=== PATIENT | male | born 1955 | race Caucasian/White ===

== ENCOUNTER → 2024-01-16 11:24 | Outpatient (REF) | payer MEDICARE, SELFPAY | LOC: HWRAD 11:24 | PROVIDERS: ATTENDING PHYSICIAN Family Medicine | DX: M25.562 Pain in left knee (principal) | CPT/HCPCS: 73564; 73565 ==

== ENCOUNTER → 2024-01-20 | Outpatient (REF) | payer MEDICARE, SELFPAY | LOC: DHSLP | PROVIDERS: ATTENDING PHYSICIAN Internal Medicine Critical Care Medicine; FAMILY PHYSICIAN Family Medicine | DX: G47.33 Obstructive sleep apnea (adult) (pediatric) (principal) | CPT/HCPCS: 95800 ==

== ENCOUNTER 2024-02-13 06:33 | Outpatient (RCR) | payer MEDICARE, SELFPAY | END 2024-02-13 23:59 | disposition home or self-care (01) | LOC: RPT 06:33 | PROVIDERS: ATTENDING PHYSICIAN Family Medicine | DX: M25.562 Pain in left knee (principal); M62.81 Muscle weakness (generalized); Z73.6 Limitation of activities due to disability | CPT/HCPCS: 97110; 97140; 97161; 97530 ==

== ENCOUNTER → 2024-02-13 13:06 | Outpatient (REF) | payer MEDICARE, SELFPAY | LOC: MRI 3T 13:06 | PROVIDERS: ATTENDING PHYSICIAN Surgery; FAMILY PHYSICIAN Family Medicine | DX: C49.5 Malignant neoplasm of connective and soft tissue of pelvis (principal) | CPT/HCPCS: 72197; A9575 ==

== ENCOUNTER → 2024-02-17 07:22 | Outpatient (REF) | payer MEDICARE, SELFPAY | LOC: HWRAD 07:22 | PROVIDERS: ATTENDING PHYSICIAN Surgery; FAMILY PHYSICIAN Family Medicine | DX: C49.5 Malignant neoplasm of connective and soft tissue of pelvis (principal) | CPT/HCPCS: 71250 ==

== ENCOUNTER 2024-03-09 09:25 | Outpatient (RCR) | payer MEDICARE, SELFPAY | END 2024-03-09 09:57 | disposition home or self-care (01) | LOC: RPT 09:25 | PROVIDERS: ATTENDING PHYSICIAN Family Medicine | DX: M25.562 Pain in left knee (principal); M62.81 Muscle weakness (generalized); Z73.6 Limitation of activities due to disability | CPT/HCPCS: 97110; 97112; 97530 ==

== ENCOUNTER → 2024-04-01 09:32 | Outpatient (REF) | payer MEDICARE, SELFPAY | LOC: HWRAD 09:32 | PROVIDERS: ATTENDING PHYSICIAN Urology; FAMILY PHYSICIAN Family Medicine | DX: N20.0 Calculus of kidney (principal) | CPT/HCPCS: 74018 ==

== ENCOUNTER → 2024-12-20 06:58 | Outpatient (REF) | payer MEDICARE, SELFPAY | LOC: HWRCS 06:58 | PROVIDERS: ATTENDING PHYSICIAN Family Medicine | DX: I35.0 Nonrheumatic aortic (valve) stenosis (principal) | CPT/HCPCS: 93306 ==

== ENCOUNTER → 2025-02-08 07:55 | Outpatient (REF) | payer MEDICARE, SELFPAY | LOC: HWRAD 07:55 | PROVIDERS: ATTENDING PHYSICIAN Nurse Practitioner Family; FAMILY PHYSICIAN Family Medicine | DX: C49.5 Malignant neoplasm of connective and soft tissue of pelvis (principal) | CPT/HCPCS: 71250 ==

== ENCOUNTER → 2025-02-10 09:28 | Outpatient (REF) | payer MEDICARE, SELFPAY | LOC: MRI 3T 09:28 | PROVIDERS: ATTENDING PHYSICIAN Nurse Practitioner Family | DX: C49.5 Malignant neoplasm of connective and soft tissue of pelvis (principal) | CPT/HCPCS: 72197; A9575 ==

== ENCOUNTER → 2025-03-21 07:43 | Outpatient (REF) | payer MEDICARE, SELFPAY | LOC: HWRAD 07:43 | PROVIDERS: ATTENDING PHYSICIAN Urology; FAMILY PHYSICIAN Family Medicine | DX: N20.0 Calculus of kidney (principal) | CPT/HCPCS: 76775 ==